=== PATIENT | male | born 1975 | race Two or more races ===

== ENCOUNTER 2024-10-12 10:57 | Emergency (ER) | payer MEDICAID, SELFPAY ==
[2024-10-12] VITALS (8 sets, daily range): BP systolic 93–126; BP diastolic 60–76; PULSE 59–96; RESP 10–16; TEMP 36.7; O2SAT 96–99; BMI 35.2
--- NOTE | 2024-10-12 11:42 | EKG_ITS ---
[facility] Test Date: 2024-10-12 Pat Name: ATUL FLOWERS Department: Room: - Gender: Male Rn Admit: : 1975 Requested By: Corry Gonzales Order Number: [id number] Reading MD: Corry Gonzales Measurements Intervals Bailey Rate: 87 P: 24 ID: [id number] QRS: 66 QRSD: 91 T: 35 QT: 346 QTc: 417 Interpretive Statements SINUS RHYTHM WITH SINUS ARRHYTHMIA POSSIBLE LEFT ATRIAL ENLARGEMENT [-0.1mV P-WAVE IN V1/V2] ST ELEVATION, PROBABLY EARLY REPOLARIZATION [ST ELEVATION WITH NORMALLY INFLECTED T-WAVE] No previous ECG available for comparison /store/S0/[id number].pdf
--- NOTE | 2024-10-12 11:42 | XR_ITS ---
Examination: CT brain head without contrast. 2-D sagittal coronal reconstructions Date and time of exam:October 12, 2024 1312 hrs. Indications: Syncopal episode today CTDI: vol (mGy):C2 DLP: (mGycm):1353 Technique: Multiple CT axial sections of the brain have been obtained, 5 mm slice thickness. Contrast has not been administered. 2-D sagittal, coronal reconstructions have been obtained Low dose protocols were performed. One or more of the following dose reduction techniques were used; automated exposure control, adjustment of the mA and/or KV according to patient size, use of iterative reconstruction technique. Findings: No significant ventricular enlargement. Intra-axial or extra-axial hemorrhage density is not seen. No mass effect or midline shift Basal cisterns are not remarkable. Fourth ventricle is midline. Cranial vault intact. Impression: Negative for acute hemorrhage, mass effect or midline shift Advise clinical correlation follow-up accordingly
--- NOTE | 2024-10-12 11:43 | PD.EDRME ---
Rapid Medical Screening Exam RME Arrival date/time: 10/12/24 10:57 This is a case of 48-year-old male who came into the emergency room due to syncopal episode today patient denies any chest pain numbness weakness dizziness shortness of breath or any blurring of vision patient states that this is his third syncopal episode in 6 months Chief Complaint: Syncope / Near Syncope Time Seen by Provider: 10/12/24 11:40 Vital signs: Vital Signs Temperature 98.1 F 10/12/24 11:30 Pulse Rate 96 10/12/24 11:30 Respiratory Rate 16 10/12/24 11:30 Blood Pressure 93/60 10/12/24 11:30 Pulse Oximetry (%) 97 10/12/24 11:30 Oxygen Delivery Method Room Air 10/12/24 11:30
[2024-10-12 12:13] LABS: Basophils % (Auto) 1 % (0-2.5); Eosinophils % (Auto) 1 % (0-10); Hemoglobin 12.6 g/dL (13.5-16.0); Immature Granulocytes % (Auto) 0 % (0-0); Immature Granulocytes Auto 0.02 Thou/mm3 (0.00-0.00); Lymphocytes # (Auto) 1.4 Thou/mm3 (1.0-4.8); Lymphocytes % (Auto) 25 % (10-50); Mean Corpuscular HGB Conc 33.2 g/dl (31.0-37.0); Mean Corpuscular Hemoglobin 28.7 pg (25.0-35.0); Mean Corpuscular Volume 87 fL (80-100); Monocytes # (Auto) 0.5 Thou/mm3 (0.0-0.8); Monocytes % (Auto) 9 % (0-12); Neutrophils # (Auto) 3.9 Thou/mm3 (1.8-7.7); Neutrophils % (Auto) 66 % (37-80); Nucleated Red Blood Cell % 0 /100 WBC (0); Platelet Count 187 Thou/mm3 (140-440); Red Blood Count 4.39 Miln/mm3 (4.50-5.90); White Blood Count 5.9 Thou/mm3 (3.8-10.6)
[2024-10-12 12:38] LABS: Albumin, Serum 4.3 gm/dL (3.5-5.0); Albumin/Globulin Ratio 1.4 (1.2-2.2); Alkaline Phosphatase 48 U/L (46-116); Anion Gap 7 (7-16); Aspartate Amino Transferase 14 U/L (0-34); BUN/Creatinine Ratio 8 Ratio (12-20); Bilirubin,Total 0.6 mg/dL (0.3-1.2); Blood Urea Nitrogen 10 mg/dL (9-23); Calcium 9.8 mg/dL (8.3-10.6); Calcium (Corrected) 9.8 mg/dL (8.5-10.1); Carbon Dioxide 28.1 mMol/L (20.0-31.0); Chloride 105 mMol/L (98-107); Creatinine (Component) 1.3 mg/dL (0.6-1.3); Estimated Creatinine Clearance 91.1 mL/min (>60); Glucose 150 mg/dL (74-106); Osmolality,Calculated 281 (275-295); Potassium 4.4 mMol/L (3.4-5.1); Sodium 140 mMol/L (136-145); Total Protein 7.3 gm/dL (5.7-8.2); Troponin I < 0.020 ng/mL (0.0-0.045); eGFR > 60 See Note
[2024-10-12 12:45] LABS: Alanine Aminotransferase 9 U/L (10-49)
[2024-10-12 15:11] LABS: Collection Type, Urine Clean Catch; Squamous Epithelial Cell,Urine 0 /hpf (0-5)
[2024-10-12 15:31] LABS: Bilirubin,Urine Negative (Negative); Blood,Urine Negative (Negative); Color,Urine Lt-Yellow (Lt Yel-Yel); Glucose, Urine Negative (Negative); Ketones,Urine Negative (Negative); Leukocyte Esterase,Urine Negative (Negative); Nitrite,Urine Negative (Negative); PH,Urine 6.5 (5.0-7.0); Protein,Urine Negative (Neg - Trace); RBC,Urine 1 /hpf (0-3); Specific Gravity,Urine 1.005 (1.001-1.035); Urobilinogen,Urine Negative mg/dL (0.0-1.0); WBC,Urine 1 /hpf (0-5)
[2024-10-12 15:35] LABS: Clarity,Urine Hazy (Clear/Hazy); Sperm,Urine Present
--- NOTE | 2024-10-12 17:08 | PD.EDSYNC ---
ED Syncope RME/HPI General Chief Complaint: Syncope / Near Syncope Stated Complaint: SYNCOPAL EPISODES INTERMITTENTLY LAST X 20MIN. AGO Time Seen by Provider: 10/12/24 11:40 Source: patient Arrival date/time: 10/12/24 10:57 Mode of arrival: ambulatory Limitations: no limitations RME / HPI RME / HPI narrative: 10/12/24 10:57 This is a case of 48-year-old male who came into the emergency room due to syncopal episode today patient denies any chest pain numbness weakness dizziness shortness of breath or any blurring of vision patient states that this is his third syncopal episode in 6 months Patient came in by ambulance after he had a near syncope He was standing and felt weak and did not lose consciousness but he felt that his legs are too weak According to his mother he also looked pale He did not lose consciousness and he was able to answer questions and the whole episode lasted only few seconds There was no head injury Injuries sustained associated with event: none Current symptoms: none Treatments prior to arrival: none Related Data Home Medications ?Medication ?Instructions ?Recorded ?Confirmed divalproex 500 mg tablet,extended 500 mg PO BID 12/16/18 05/22/20 release 24 hr (Depakote ER) Previous Rx's ?Medication ?Instructions ?Recorded hydrocortisone acetate 25 mg 25 mg NJ BID #24 ea 05/22/20 rectal suppository (Anusol-HC) Allergies Allergy/AdvReac Type Severity Reaction Status Date / Time UNKNOWN FUNGAL CREAM Allergy Severe Hives Uncoded 10/12/24 11:02 Review of Systems Review of Systems Narrative Review of Systems: 10 system review is negative ED Exam General Limitations: Present no limitations General appearance: Present alert and in no apparent distress Head Head exam: Present atraumatic, normocephalic and normal inspection Eye Eye exam: Present normal appearance, PERRL and EOMI ENT ENT exam: Present normal exam, normal oropharynx, mucous membranes moist and mucous membranes dry Neck Neck exam: Present normal inspection, full ROM and trachea midline Chest Chest inspection: Present normal inspection and symmetric chest wall rise Respiratory Respiratory exam: Present normal lung sounds bilaterally Cardiovascular Cardiovascular exam: Present regular rate and normal rhythm Abdominal Exam Abdominal exam: Present soft and normal bowel sounds Rectal Exam Rectal exam: Present deferred exam: Present normal inspection Extremities Exam Extremities exam: Present normal inspection and full ROM Back Exam Back exam: Present normal inspection and full ROM Neurological Exam Neurological exam: Present alert, oriented X3, CN II-XII intact, normal gait, motor sensory deficit and reflexes normal Psychiatric Psychiatric exam: Present normal affect and normal mood Skin Skin exam: Present warm, dry, intact and normal color Course Quality Measures none Orders Category Date Time Status EKG (ED ONLY) *Do not use* NOW Care 10/12/24 11:[address] head/brain wo con Stat Exams 10/12/24 11:42 Completed EKG (ED Only) Stat Exams 10/12/24 11:42 Draft CBC Stat Lab 10/12/24 11:51 Completed Comprehensive Metabolic Panel Stat Lab 10/12/24 11:51 Completed Troponin I Stat Lab 10/12/24 11:51 Completed Urinalysis Stat Lab 10/12/24 15:00 Completed Reevaluation(s) Reevaluation #1: Patient was watched in the ER had no arrhythmia He had no further episodes Patient was back to his baseline since he came to the ER His labs were reviewed His CAT scan was negative EKG showed normal sinus rhythm with normal intervals and no deviation no ischemia Vital Signs Vital signs: Vital Signs Temperature 98.1 F 10/12/24 11:30 Pulse Rate 96 10/12/24 11:30 Respiratory Rate 16 10/12/24 11:30 Blood Pressure 93/60 10/12/24 11:30 Pulse Oximetry (%) 97 10/12/24 11:30 Oxygen Delivery Method Room Air 10/12/24 11:30 Syncope Patient data External records reviewed:: [facility] previous records Clinical information provided by:: patient Social determinants that could affect healthcare access:: none Patient has the following chronic illnesses:: None How is presenting disease/condition affected by chronic disease/condition?: no chronic disease Evaluation data The following diagnostics were reviewed and interpreted by me:: lab results, radiology exam(s) and EKG tracing(s) Lab and/or radiology exams considered but not ordered:: Labs were unremarkable Interpretation Summary: Normal CAT scan of the head normal EKG and normal chest x-ray Medications / Prescriptions Medications or Prescriptions considered but not ordered:: none Medication administrations:: None Consultations Consultation(s) initiated? (list below): No Diagnosis Syncope Differential Diagnosis: vasovagal syncope Most likely diagnosis given after review of the tests above:: Vasovagal syncope Admission Indicated Admission indicated?: not indicated Admission Request Was there a request for admission?: No Disposition Plan Disposition Plan: Discharge Discharge Attestation Discharge Attestation: The patient and all family members were given an opportunity to ask questions and understood the discharge instructions. Discharge instructions specifically effects, indications for sooner follow up or return to the emergency department, and the expected course of current diagnosis. Patient condition: Stable Discharge Plan Plan Patient Disposition: HOME (Self Care) Patient condition on transfer: Stable Prescriptions/Referrals Prescriptions/Med Rec: No Action divalproex [Depakote ER] 500 mg Tablet Extended Release 24 Hr 500 mg PO BID hydrocortisone acetate [Anusol-HC] 25 mg suppository 25 mg NJ BID Qty: 24 0RF Referrals: Aneudy Tellez MD [Primary Care Provider] - In 1 week Problem List Clinical Impression: Syncope, vasovagal Patient/Caregiver Discharge Instructions Education Materials: ED Near-Fainting- Vagal Reaction Print Language: Albanian Stand Alone Forms: Martine Award Info., Patient Portal Info Letter
== END 2024-10-12 17:15 | disposition home or self-care (01) ==
PROVIDERS: Nurse Practitioner Family; Emergency Provider Emergency Medicine; PCP Family Medicine
DX: R55 Syncope and collapse (principal); I49.8 Other specified cardiac arrhythmias
CPT/HCPCS: 36415; 70450; 80053; 81001; 84484; 85025; 93005; 99284

== ENCOUNTER → 2024-11-13 | Outpatient (CLI) | payer MEDICAID, SELFPAY ==
--- NOTE | 2024-11-13 13:17 | XR_ITS ---
Examination: Shoulder bilateral, 6 views Technique: Shoulder AP internal rotation, AP external rotation, Y view each shoulder total 6 views Exam date and time :November 13, 2024 1342 hours INDICATIONS: Bilateral shoulder pain beginning 3 months ago FINDINGS: No right or left shoulder fracture or dislocation Mild right moderate narrowing left glenohumeral joint Mild bilateral osteoarthritis acromioclavicular joints No calcific tendinitis IMPRESSION: Mild right moderate left narrowing glenohumeral joints
== END | disposition home or self-care (01) ==
PROVIDERS: PCP Family Medicine; Referring Provider Nurse Practitioner; Visit Provider Nurse Practitioner
DX: M25.511 Pain in right shoulder (principal); M25.812 Other specified joint disorders, left shoulder
CPT/HCPCS: 73030

== ENCOUNTER 2024-12-10 13:30 | Outpatient (RCR) | payer MEDICAID, SELFPAY ==
--- NOTE | 2024-12-08 13:44 | PTNOTE_ITS ---
PT OP Initial Eval Patient Information Outpatient Physical Therapy Treatment Date: 12/08/24 Visit Reasons: LEFT SHOULDER PAIN Medical Diagnosis: M25.512 Treatment Dx #1: L shoulder pain Start of Care: 12/08/24 Date of Onset: 3 months ago Smoking Status Smoking Status: Former smoker Years smoked: 20 Initial Assessment Subjective: Pt is 48 yr old male who c/o L shoulder pain x3 months not sure how it started. Increased pain with reaching up and behind the back. He's not working and the pain limits showering and dressing ADL's. PMH: HTN Imaging: Xray Mild right moderate left narrowing glenohumeral joints Pt goal: to get rid of the pain to reach up more Objective: L shoulder AROM: ? FF: 95 deg ? Abd: 90 deg ? ER: 65 deg ? HBB: to L glute with pain ? Strength: 3+/5 in all planes ? PROM: end-range pain with capsular tightness Assessment: Pt presentation consistent with adhesive capsulitis of? shoulder. ROM limited in capsular pattern with pain that limits end-range ? tolerance into all planes but especially ER and IR.? Pt may benefit from ? skilled therapy and has fair rehab potential to meet goals. Eval followed by HEP and printout. Short Term and Party Coordinator Goals 1. Ind with HEP ? 2. Improved AROM of L shoulder to at least 135 deg FF, 125 deg abduction and 90 deg ? ER ? 3. Improved HBB ROM to L3 ? 4. Pt will reach OH x10 with <=4/10 pain Treatment Plan 1. Manual therapy ? 2. Therex ? 3. Modalities as indicated, moist heat pack, ice, electrical stimulation Frequency and Duration: 2x a week for 12 visits plus the evaluation Certification Dates: 12/08/24 to 03/08/25 Procedure Charges OP PT Eval Mod Complex 30 minutes: Yes
--- NOTE | 2024-12-10 14:18 | PT.ODAYNRPT ---
PT Outpatient Daily Note OP Daily Note Outpatient Physical Therapy Treatment Date: 12/10/24 Visit Reasons: LEFT SHOULDER PAIN Subjective: Pt reports L shoulder is stiff and painful. Objective: Please see flow sheet for ther ex list. Assessment: Interventions completed with minimal pain, applied MHP post PT session. Plan: Assess response to treatment. Length of Time (minutes) of Treatment: 30 Minutes Procedure Charges Therapeutic Exercise 30 minutes: Yes
== END 2024-12-14 23:59 | disposition home or self-care (01) ==
LOC: CPTX 13:30
PROVIDERS: PCP Student in an Organized Health Care Education/Training Program; Referring Provider Student in an Organized Health Care Education/Training Program; Visit Provider Student in an Organized Health Care Education/Training Program
DX: M25.512 Pain in left shoulder (principal); I10 Essential (primary) hypertension
CPT/HCPCS: 97110; 97162

== ENCOUNTER → 2024-12-12 | Outpatient (CLI) | payer MEDICAID, SELFPAY ==
--- NOTE | 2024-12-12 09:30 | XR_ITS ---
Examination: MRI brain without intravenous contrast. Date and time of exam: December 12, 2024, 0946 hours INDICATIONS: Hallucinations 15 years Technique: Multiple axial and sagittal images of the brain obtained. Siemens high-resolution 1.5 Meli short bore scanners utilized. Sagittal sections, T1-weighted, TR 500, TE 14, are performed. Axial sections proton-density and T2-weighted have been obtained. Inversion recovery axial images, TR 9, 260, TE 111, TI 2500. Diffusion weighted images, axial sections, TR 4800, TE 128, B value 1000 Axial sections, ADC map, TR 4800, TE 128 Findings: Enlargement of the sella turcica is not present. The optic chiasm and infundibular are not remarkable. Prepontine and interpeduncular cisterns are not enlarged. There is no localized enlargement of the medulla or ayaan. Fourth ventricle and cerebellar tonsils appear normal in position. No subacute area of hemorrhage density is seen. Mass in the cerebellopontine angle region is not evident. Globes symmetrical. Orbital musculature including medial lateral rectus muscles do not exhibit abnormality. Diffusion-weighted images demonstrate no focus of restricted diffusion. Increased white matter signal evident, punctate focus increased signal left frontal parietal white matter FLAIR image 17 Mass effect upon the ventricular system is not identified. Impression: Single punctate focus increased signal left frontal parietal white matter, FLAIR image 17, differential would include demyelinating disease, recommend neurology consultation and correlation with clinical findings
== END | disposition home or self-care (01) ==
LOC: SMRI 09:06
PROVIDERS: PCP Family Medicine; Referring Provider Specialist; Visit Provider Specialist
DX: R90.82 White matter disease, unspecified (principal)
CPT/HCPCS: 70551

== ENCOUNTER 2025-01-12 13:30 | Outpatient (RCR) | payer MEDICAID, SELFPAY ==
--- NOTE | 2024-12-19 14:16 | PT.ODAYNRPT ---
PT Outpatient Daily Note OP Daily Note Outpatient Physical Therapy Treatment Date: 12/19/24 Visit Reasons: Left shoulder pain Subjective: Pt c/o shoulder stiffness. Objective: Please see flow sheet for ther ex list. Assessment: Progression of interventions completed with no complaints. Plan: Continue with POC. Length of Time (minutes) of Treatment: 30 Minutes Procedure Charges Therapeutic Exercise 30 minutes: Yes
--- NOTE | 2024-12-24 13:42 | PT.ODAYNRPT ---
PT Outpatient Daily Note OP Daily Note Outpatient Physical Therapy Treatment Date: 12/24/24 Visit Reasons: Left shoulder pain Subjective: Pt complaint of Lt shoulder stiffness. Objective: See F/S for therex Assessment: Tolerated Lt shoulder PROM - flexion, abduction, and external rotation fairly; ROM limited due to pain. Pt confirmed he has a jung system at home; advised to continue use along with stretches to improve ROM. Plan: Continue with POC Length of Time (minutes) of Treatment: 30 Minutes Procedure Charges Therapeutic Exercise 30 minutes: Yes
--- NOTE | 2024-12-26 15:06 | PT.ODAYNRPT ---
PT Outpatient Daily Note OP Daily Note Outpatient Physical Therapy Treatment Date: 12/26/24 Visit Reasons: Left shoulder pain Subjective: Pt reports L shoulder is doing better, feels flexibility is improving. Objective: Please see flow sheet for ther ex list. Assessment: Pt instructed on ER door stretch, tolerated well. Plan: Continue with poC. Length of Time (minutes) of Treatment: 30 Minutes Procedure Charges Therapeutic Exercise 30 minutes: Yes
--- NOTE | 2024-12-31 16:13 | PT.ODAYNRPT ---
PT Outpatient Daily Note OP Daily Note Outpatient Physical Therapy Treatment Date: 12/31/24 Visit Reasons: Left shoulder pain Subjective: Pt reports L shoulder is doing better, pain has reduced. Objective: Please see flow sheet for ther ex list. Assessment: Added [employer] stationary bike, pt tolerated well minimal complaints. Plan: Continue with pOC. Length of Time (minutes) of Treatment: 30 Minutes Procedure Charges Therapeutic Exercise 30 minutes: Yes
--- NOTE | 2025-01-02 15:36 | PT.ODAYNRPT ---
PT Outpatient Daily Note OP Daily Note Outpatient Physical Therapy Treatment Date: 01/02/25 Visit Reasons: Left shoulder pain Subjective: No new complaints. Objective: Please see flow sheet for ther ex list. Assessment: AROM into abduction most limited, pt demonstrates trunk flexion during shoulder abduction verbal cues to maintain spine in neutral focus on GH translation. Plan: Continue with pOC. Length of Time (minutes) of Treatment: 30 Minutes Procedure Charges Therapeutic Exercise 30 minutes: Yes
--- NOTE | 2025-01-08 15:40 | PT.ODAYNRPT ---
PT Outpatient Daily Note OP Daily Note Outpatient Physical Therapy Treatment Date: 01/08/25 Visit Reasons: Left shoulder pain Subjective: Pt reports no changes to Lt shoulder, no complaints of pain. Objective: See F/S for therex performed Assessment: Min vc's to avoid trunk lean and rotation with AAROM w/ clau exercise, pt able to self correct. Progressed to resisted IR/ER walkouts, good tolerance with no onset of pain. Plan: Continue with POC Length of Time (minutes) of Treatment: 30 Minutes Procedure Charges Therapeutic Exercise 30 minutes: Yes
--- NOTE | 2025-01-12 14:49 | PT.ODAYNRPT ---
PT Outpatient Daily Note OP Daily Note Outpatient Physical Therapy Treatment Date: 01/12/25 Visit Reasons: Left shoulder pain Subjective: Pt arrived with increased pain to Lt shoulder, explains he is unsure why his pain has increased. Objective: See F/S for therex performed Assessment: Fair tolerance with therex due to Lt shoulder pain. Unable to perform AAROM IR exercise with dowel due to pain. Fair tolerance with passive Lt shoulder stretching into flexion, abduction, external/internal rotation. Ice pack applied post session. Advised to cotinue with HEP. Plan: Continue with POC Length of Time (minutes) of Treatment: 30 Minutes Procedure Charges Therapeutic Exercise 30 minutes: Yes
== END 2025-01-13 23:59 | disposition home or self-care (01) ==
LOC: CPTX 13:30
PROVIDERS: PCP Student in an Organized Health Care Education/Training Program; Referring Provider Student in an Organized Health Care Education/Training Program; Visit Provider Student in an Organized Health Care Education/Training Program
DX: M25.512 Pain in left shoulder (principal); I10 Essential (primary) hypertension
CPT/HCPCS: 97110

== ENCOUNTER 2025-01-28 13:30 | Outpatient (RCR) | payer MEDICAID, SELFPAY ==
--- NOTE | 2025-01-15 14:12 | PT.ODAYNRPT ---
PT Outpatient Daily Note OP Daily Note Outpatient Physical Therapy Treatment Date: 01/15/25 Visit Reasons: lEFT SHOULDER PAIN Subjective: Pt reports no changes to Lt shoulder, c/o minimal pain. Objective: See F/S for therex performed Assessment: Improved independence with therex, less corrective cues required to avoid trunk rotation and upper trap compensation. No increase in pain with therex Plan: Continue with POC Length of Time (minutes) of Treatment: 30 Minutes Procedure Charges Therapeutic Exercise 30 minutes: Yes
--- NOTE | 2025-01-23 15:20 | PT.ODAYNRPT ---
PT Outpatient Daily Note OP Daily Note Outpatient Physical Therapy Treatment Date: 01/23/25 Visit Reasons: lEFT SHOULDER PAIN Subjective: Pt reports L shoulder has been hurting more lately. Objective: Please see flow sheet for ther ex list. Assessment: Regressed interventions and held off on resistance bands to accommodate reported pain. Plan: Continue with pOC. Length of Time (minutes) of Treatment: 30 Minutes Procedure Charges Therapeutic Exercise 30 minutes: Yes
--- NOTE | 2025-01-28 18:38 | PT.ODS1RPT ---
PT OP Progress/Discharge Note Date of Service: 01/28/25 Progress Note/DC Note Progress Note/Discharge Note: DC Note Patient Information Visit Reasons: lEFT SHOULDER PAIN Service Continue Service or Discharge: Discharge Discharge Date: 01/28/25 Status Subjective: The L shoulder pain is the same since starting therapy, wants to be done with therapy Objective: L shoulder AROM: FF: 100 deg Abd: 105 deg ER: 86 deg HBB: to L3 Strength: 4-/5 in all planes Assessment: Pt has attended the evaluation and 10 Rx sessions with limited progress with therapy goals due to continued L shoulder pain. He has slightly improved ROM and strength but hasn't met goals. He may benefit from further diagnostic imaging of L shoulder such as MRI. Plan: D/C Procedure Charges Therapeutic Exercise 15 minutes: Yes
== END 2025-02-13 23:59 | disposition home or self-care (01) ==
LOC: CPTX 13:30
PROVIDERS: PCP Student in an Organized Health Care Education/Training Program; Referring Provider Student in an Organized Health Care Education/Training Program; Visit Provider Student in an Organized Health Care Education/Training Program
DX: M25.512 Pain in left shoulder (principal); I10 Essential (primary) hypertension
CPT/HCPCS: 97110